=== PATIENT | male | born 1975 | race Caucasian/White ===

== ENCOUNTER 2016-09-13 19:25 | Inpatient (IN) | payer OTHER ==
--- NOTE | ~2016-09-13 | CN ---
Consultation Report [facility] [address] [place]. [address] NAME: RADHA ORTIZ : 73 STATUS : ADM IN PAT#: [id number] AGE: 40 ADM/REG DATE : 09/14/16 MR#: [id number] REPORT SERV DATE: 09/14/16 DICTATED BY: BLANE DON DATE: 09/14/16 REPORT STATUS : Draft TRANSCRIBED BY: ANDREW DATE: 09/14/16 CONSULTATION DATE OF CONSULTATION: 09/14/2016 HISTORY: This is a 40-year-old white male whom I am seeing for Dr. Edgard Perera, admitted with tarry stools and hematemesis in the ER. Hemoglobin 7.5, receiving transfusions. He has been at [facility]. He had a fall 9 years ago, paraplegia, has colostomy, frequent UTIs, developed decubitus and osteo. He has been receiving IV antibiotics at [facility] when the above developed. He has had the nausea and vomiting, 1 episode and several dark stools. He had a CT of the abdomen apparently unremarkable in the ER. SOCIAL HISTORY: Negative for nicotine. FAMILY HISTORY: Negative for colon cancer. He had an upper GI bleed in [place] about 4 months ago and had required 6 units. Apparently, no source identified. PHYSICAL EXAMINATION: GENERAL: Well-developed white male, alert. HEENT: Anicteric. NECK: Negative. CHEST: Clear to percussion. HEART: Regular rate rhythm. No murmur or gallop. ABDOMEN: Soft. No marked tenderness. Colostomy noted with dark stool in the bag. EXTREMITIES/NEUROLOGIC: Pertinent for his paraplegia. ASSESSMENT: 1. Upper gastrointestinal bleed. Hemoglobin 7.5. He is receiving blood. History of a 6- unit bleed in [place] four months ago. No identifiable source according to patient. White count 2800, platelet count 212,000, INR 1.3. 2. Paraplegia after a fall 9 years ago. 3. Decubitus with osteomyelitis on antibiotics at [facility]. 4. Frequent urinary tract infection, suggestion Protonix drip. Followup H and H. We will do EGD tonight. Risks and benefits explained to patient and he consented to the above. Thank you very much for the consultation. GARRETT Blane Don M.D. / [id number] Consultation Report [place] [address] [facility] [address] NAME: RADHA ORTIZ : 73 STATUS : ADM IN PAT#: [id number] AGE: 40 ADM/REG DATE : 09/14/16 MR#: [id number] REPORT SERV DATE: 09/14/16 DICTATED BY: BLANE DON DATE: 09/14/16 REPORT STATUS : Draft TRANSCRIBED BY: MODL DATE: 09/14/16 CC: MD Edgard Kruger M.D.
--- NOTE | ~2016-09-13 | DS ---
Discharge Summary [place] [address] [place]. [address] NAME: RADHA ORTIZ : 73 STATUS : DIS IN PAT#: [id number] AGE: 40 ADM/REG DATE : 09/14/16 MR#: [id number] REPORT SERV DATE: 09/28/16 DICTATED BY: DATE: REPORT STATUS : Draft TRANSCRIBED BY: MODL DATE: 09/27/16 ADMISSION DATE: 09/14/2016 DISCHARGE DATE: 09/27/2016 DISCHARGE DIAGNOSES: 1. Status post splenectomy. 2. Thrombocytosis. 3. Acute blood loss anemia. 4. Chronic pain syndrome. 5. Sacral osteomyelitis/chronic bilateral heel ulcers. 6. Paraplegia. 7. Opioid-induced constipation. 8. Anxiety. CONSULTATIONS: 1. Dr. Richie Villegas, GI, 09/14/2016. 2. Dr. Jakub Durham, Surgery, 09/19/2016. PERTINENT TESTS AND PROCEDURES: 1. CT of the abdomen and pelvis without contrast, 09/13/2016, impression:. a. No acute abdominal or pelvic pathology identified to account for the reported suspected GI bleeding. b. Status post partial left hemicolectomy with colostomy, left lower quadrant of the abdomen. c. 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 d. Status post cholecystectomy. e. Splenomegaly. f. Extensive postsurgical changes, lower thoracic and lumbar spine with posterior spinal fusion, T9 through L5. g. Severe degenerative changes, right hip joint with flattened femoral head contour with large marginal osteophytes rotated lateral margin or shallow right acetabulum with chronic appearing sclerosis about the acetabulum with probable bony debris within the joint capsule representing sequelae of old trauma, infection or severe osteoarthritis. 2. Chest x-ray, 09/15/2016, impression: Minimal bibasilar atelectasis. 3. Ultrasound of bilateral lower extremities, impression: No right or left lower extremity venous thrombus demonstrated. 4. Chest x-ray, 09/16/2016, impression: Stable appearance of chest. No acute infiltrate. 5. Hepatic ultrasound on 09/17/2016, impression: Portal vein exhibits turbulent flow. Suspect for biphasic component as portal vein is dilated measuring 1.0 cm in diameter consistent with portal venous hypertension. 6. CT of the pancreas with and without contrast, 09/18/2016, impression:. a. Multiple thick walled cyst replacing head, body, and tail of pancreas measuring up to 25 x 39 mm at the proximal tail level, likely to represent pancreatic pseudocyst. Discharge Summary [place] [address] [place]. [address] NAME: RADHA ORTIZ : 73 STATUS : DIS IN PAT#: [id number] AGE: 40 ADM/REG DATE : 09/14/16 MR#: [id number] REPORT SERV DATE: 09/28/16 DICTATED BY: DATE: REPORT STATUS : Draft TRANSCRIBED BY: MODL DATE: 09/27/16 b. 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 Multiple varices/collaterals within the splenic hilum and the surrounding stomach draining into the main portal vein. Inferior mesenteric vein is patent and appears to drain into this area of collaterals. c. Stable splenomegaly. Enlargement of main portal vein up to 20 mm in diameter compatible with portal hypertension. d. Stable mild fullness of the central biliary tree within the common bile duct measuring 8 mm in diameter. 7. Chest x-ray, 09/23/2016, impression: Clear chest. 8. 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 9. Laparotomy with splenectomy and gastric devascularization, 09/22/2016. CHIEF COMPLAINT UPON ADMISSION: Black tarry stools from ostomy. HOSPITAL COURSE: Please refer to history and physical dated 09/14/[address] Scotty Jordan for complete details pertaining to the patient's initial presentation upon admission and health history. Also, refer to consultations and records of operation between the dates of 09/14/2016 and 09/22/2016 provided by GI and Surgery. Refer to interim discharge dated 09/17/[address] Sierra Rivas, manager of radiology, for details pertaining to events occurring between 09/14/2016 and 09/17/2016. Briefly, the patient is a 40-year-old male, who presented to the emergency department from [facility] on 09/14/2016 with complaints of black tarry stools into his ostomy bag. Initial evaluation in the emergency department included Hemoccult which was positive. The patient's hemoglobin and hematocrit had fallen from 9.4 and 29.6 on 08/22/2016 to 7.4 and 26.6 on day of admission. Gastroenterology was consulted and the patient was admitted to the hospital service in the medical intermediate care unit for further evaluation and treatment of acute gastrointestinal bleeding. GI was consulted for management of upper GI bleed. Prior to this admission, the patient had a history of a 6 unit bleed in [place] four months ago with no identifiable source. 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 Surgery discussed with the patient. 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 The patient was educated that the treatment for this is splenectomy with gastric devascularization. The risk for major morbidity and mortality were explained to the patient as well as length of recovery time. Risks, Discharge Summary [address] [address] NAME: RADHA ORTIZ : 73 STATUS : DIS IN PAT#: [id number] AGE: 40 ADM/REG DATE : 09/14/16 MR#: [id number] REPORT SERV DATE: 09/28/16 DICTATED BY: DATE: REPORT STATUS : Draft TRANSCRIBED BY: MODL DATE: 09/27/16 benefits, and alternatives were discussed and the patient opted to proceed with surgery. 1. Status post splenectomy, 09/21/2016. This was secondary to GI bleed related to splenic vein thrombosis and gastric varices. Dr. Durham had followed patient throughout this admission. The patient tolerated the procedure without adverse events and has been cleared for discharge to [facility] today. [place] drain was removed at bedside prior to discharge today. MYRTLE drain will remain intact, and the patient will follow up with Surgery in two weeks. The patient received splenectomy vaccinations per protocol prior to discharge. Prescription was provided at discharge for remaining vaccinations to be administered the week of 11/26/2016. 2. Thrombocytosis. This is likely reactive secondary to recent splenectomy. On the day of discharge, platelet count was reported to be 700,000. The patient's labs will need to be monitored closely once discharged to [place]. 3. Acute blood loss anemia. 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 Sequelae may be related to a previous alcohol abuse. The patient's hemoglobin and hematocrit are now stable, status post transfusions and splenectomy. Hemoglobin and hematocrit are reported to be 8.6 and 28.2 today. 4. Chronic pain syndrome. This is secondary to chronic sacral and bilateral heel ulcers in addition to recent abdominal pain related to splenectomy. The patient's pain has been controlled on Dilaudid PHOT[employer] ENGINEERING TECHNICIAN pump in addition to p.o. pain medications. The patient will transfer to [place] with PHOTON[employer] ENGINEERING TECHNICIAN pump orders. [place] will wean the patient off PHOTON[employer]INEERING TECHNICIAN pump. 5. Sacral osteomyelitis/chronic bilateral heel wounds. The patient has a history of sacral decubitus ulcers positive for osteomyelitis and MRSA bacteremia. ID was consulted during this admission and managed antibiotic therapy. Per ID, the patient will remain on vancomycin and meropenem through 10/15/2016. ID will continue to follow the patient at [facility]. The patient's wounds have been managed by wound nurse throughout admission. 6. Recurrent UTIs, ESBL. This is related to chronic Pan. Urinalysis was obtained on 09/14/2016 and result was negative for infection. 7. Paraplegia. This is due to a work related accident approximately nine years ago. 8. Opioid-induced constipation. Continue bowel regimen. The patient has a left lower quadrant ostomy. Output has been approximately 50 mL of liquid stool over the past 24 hours. 9. Anxiety. Continue scheduled alprazolam. DISCHARGE CONDITION: At the time of discharge, the patient is hemodynamically stable. DISCHARGE DIET: Mechanical soft diet. DISCHARGE MEDICATIONS: 1. Xanax 1 mg tablet p.o. every eight hours. 2. Vianca Cream, applied to scrotum twice daily and as needed. 3. Protonix 40 mg IV daily. 4. MRSA/MSSA re-screening nasal swab every 14 days starting 09/28/2016. 5. Mylicon three drops p.o. twice daily as needed. Discharge Summary [address] [place]. [address] NAME: RADHA ORTIZ : 73 STATUS : DIS IN PAT#: [id number] AGE: 40 ADM/REG DATE : 09/14/16 MR#: [id number] REPORT SERV DATE: 09/28/16 DICTATED BY: DATE: REPORT STATUS : Draft TRANSCRIBED BY: ANDREW DATE: 09/27/16 6. Oxymorphone 5 mg tablet, take 15 mg p.o. every eight hours scheduled. 7. Vancomycin 1 g IV every 12 hours. Continue through 10/15/2016. 8. Tylenol 650 mg p.o. every four hours as needed. 9. Benadryl 25 mg IV every six hours as needed. 10.Benadryl 25 mg p.o. every four hours as needed. 11.Dilaudid 1.5 mg IV every three hours as needed. Hold for sedation. 12.Zofran 48 mg IV every four hours as needed. 13.Zanaflex 4 mg p.o. every eight hours as needed. 14.Ambien 5 mg tablet p.o. at bedtime as needed. 15.Senokot 8.6 mg tablet two tablets p.o. twice daily as needed. 16.Milk of magnesia 30 mL p.o. daily as needed. 17.Merrem 500 mg IV every six hours. Continue through 10/15/2016. 18.MiraLAX 17 g p.o. daily. 19.Dilaudid PH[employer]INEERING TECHNICIAN pump. Demand dose 0.5 mg. lockout every 15 minutes. Total dose 2 mg/hour. To be weaned off per [place]. DISCHARGE INSTRUCTIONS: Follow up with Dr. Durham' nurse practitioner in two weeks. Additional plans of care will be determined per physician at [place]. [facility]/ANDREW ISABELLA Bello / [id number] CC: Radha Romero II, MD
--- NOTE | ~2016-09-13 | IDS ---
Interim Discharge Summary [facility] [address] [place]. [address] NAME: RADHA ORTIZ : 73 STATUS : ADM IN [facility]#: [id number] AGE: 40 ADM/REG DATE : 09/14/16 MR#: [id number] REPORT SERV DATE: 09/17/16 DICTATED BY: REGGIE RANDHAWA DATE: 09/17/16 REPORT STATUS : Draft TRANSCRIBED BY: MODL DATE: 09/17/16 ADMISSION DATE: 09/14/2016 DISCHARGE DATE: HISTORY OF PRESENT ILLNESS: Mr. Ortiz is a 40-year-old gentleman, who is followed by Dr. Perera, who has been a paraplegic for the last nine years after a fall. He has a colostomy, frequent urinary tract infections, decubitus ulcers, and recent osteomyelitis. He was actually admitted to [place] for the administration of IV antibiotics for his sacral decubitus/osteo, and developed nausea, vomiting, with some dark stools, and was moved to our facility for further management. Of note, he had a profound upper GI bleed in [place] around four months ago requiring six unit of packed red blood cell for resuscitation and evidently no source was found for the bleeding at that point. HOSPITAL COURSE: The patient was admitted on the 09/14/2016, by Dr. Jordan to the Intermediate Care Unit. GI and Infectious Disease were both consulted. ID was consulted for management of his chronic sacral decubitus infections. He was moved to the intensive care unit a short time later, and was seen by Dr. Fairbanks. Please see Dr. Fairbanks's handwritten progress notes from the last several days for additional details of his hospital course. PROBLEM LIST: 1. Acute upper GI bleed, status post endoscopy by Dr. Villegas at the time of his hospitalization. Plan is for a repeat EGD today to take a second look. We are continuing to monitor his H and H. 2. Acute blood-loss anemia, secondary to the above. His H and H, and hemodynamics have been stable for several days. 3. Chronic paraplegia x9 years, status post diverting colostomy, multiple sacral decubitus, with polymicrobial colonization, and intermittent MRSA infections, presently with osteomyelitis. He also has a prior history of ESBL Proteus in his urine. 4. Chronic pain syndrome requiring chronic narcotics. 5. Chronic constipation, secondary to opiates, paraplegia. 6. Chronic anxiety. 7. Prophylaxis, SCDs, and TEDS, and is on a proton pump inhibitor. He is full code, and the plan is to move him to the floor today for ongoing management. He will be picked up by Hospitalist Service and we have already notified the hospitalist navigator, and his labs were deferred for tomorrow morning. Please call with additional questions. JEREMIE/ANDREW Reggie Randhawa MD / [id number] CC: Interim Discharge Summary [address] [address] NAME: RADHA ORTIZ : 73 STATUS : ADM IN PAT#: [id number] AGE: 40 ADM/REG DATE : 09/14/16 MR#: [id number] REPORT SERV DATE: 09/17/16 DICTATED BY: REGGIE RANDHAWA DATE: 09/17/16 REPORT STATUS : Draft TRANSCRIBED BY: ANDREW DATE: 09/17/16 Richie Biswas MD
--- NOTE | ~2016-09-13 | OP ---
Record Of Operation [facility] [address] [place] [address] NAME: RADHA ORTIZ : 73 STATUS : ADM IN PAT#: [id number] AGE: 40 ADM/REG DATE : 09/14/16 MR#: [id number] REPORT SERV DATE: 09/14/16 DICTATED BY: BLANE DON DATE: 09/14/16 REPORT STATUS : Draft TRANSCRIBED BY: MODL DATE: 09/14/16 DATE OF PROCEDURE: 09/14/2016 PROCEDURE: Panendoscopy. PREOPERATIVE DIAGNOSES: 1. Tarry stools. 2. Episode of hematemesis. POSTOPERATIVE DIAGNOSES: There is a large amount of blood in the fundus and some old blood as well. There appeared to be some prominent vasculature in the fundus, questionable possible rule out gastric varices. Esophagus was normal, no varices noted there. The duodenum had fresh blood as well but no lesion identified there as well. DESCRIPTION OF PROCEDURE: The risk was explained prior to the procedure. The patient was intubated prior to procedure. An Olympus video endoscope was advanced into the esophagus which was normal. No blood noted in the esophagus. No varices. The scope was passed in the stomach with a large amount of blood and clot noted in the fundus, best seen on retroflexed view. The vasculature appeared somewhat prominent, questionable right gastric varices, again to the underlying vessel underneath a large amount of blood. The remainder of the stomach appeared unremarkable. The scope was passed into the duodenum, duodenal bulb, and second and third portions, and some blood which washed off but no obvious bleeding or site noted here. The scope was then pulled back into the stomach and pulled back into the esophagus and removed. The scope was withdrawn. The patient tolerated the procedure well with no complications noted. KAELYN/ANDREW Blane Don M.D. / [id number] CC: MD Edgard Kruger M.D.
--- NOTE | ~2016-09-13 | HP ---
History And Physical [facility] [address] [facility] [place]. [address] NAME: RADHA ORTIZ : 73 STATUS : ADM IN [facility]#: [id number] AGE: 40 ADM/REG DATE : 09/14/16 MR#: [id number] REPORT SERV DATE: 09/14/16 DICTATED BY: SCOTTY GOODWIN DATE: 09/14/16 REPORT STATUS : Draft TRANSCRIBED BY: MODL DATE: 09/14/16 DATE OF ADMISSION: 09/14/2016 CHIEF COMPLAINT: Black tarry stools from his ostomy. HISTORY OF PRESENT ILLNESS: This is a 40-year-old male with a history of paraplegia secondary to a fall 40 to 50 feet height while he was at work. He has a history of ESBL urinary tract infections and ischial decubitus ulcers positive for osteomyelitis and MRSA bacteremia. The patient was sent to [place] for IV antibiotics and acute care when this morning, he noticed that he had black tarry stools into his ostomy bag. He filled two bags in similar fashion and the facility decided to bring him over to the emergency room at [facility] for evaluation. In the emergency room, indeed he was stool Hemoccult positive. His hemoglobin and hematocrit had fallen from 9.4 and 29.6 on 08/22/2016 to 7.4, 26.6 today. The ER called Dr. Richie Villegas for a Gastroenterology consultation and he had advised admission under the Hospitalist Service in the medical intermediate care unit. He had also ordered 2 units of blood to be transfused today. At the time of my evaluation, the patient was alert, awake, oriented, and a reliable historian. He denied any chest pain, palpitations, or orthopnea. He had no cough, hemoptysis, night sweats, or weight loss. He did not have any recent falls or loss of consciousness. No history of fevers, chills, nausea, vomiting, diarrhea, or dysuria. He has had no hematemesis. He did have melena. No history of hematuria. No other history of recent travel or exposures other than those mentioned above. PAST MEDICAL HISTORY: Significant for chronic pain due to his ischial decubitus ulcers and bilateral heel ulcers. He is paraplegic after he had a fall 40 to 50 feet of height where he was working. He has a history of MRSA bacteremia, MRSA positive osteomyelitis in the ischial ulcers, and bilateral severe heel ulcers as well. He has ESBL Proteus urinary tract infection due to chronic Pna catheter as well. SOCIAL HISTORY: He does not smoke, drink, or use recreational drugs. However one of the records, which accompanied him from another facility, does show that he tested positive for amphetamines and THC. FAMILY HISTORY: Noncontributory. MEDICATIONS: His medications at home were reviewed by me in the chart today and reordered by me. REVIEW OF SYSTEMS: As in history of present illness. All other systems were reviewed in detail and are quite unremarkable. PHYSICAL EXAMINATION: History And Physical [address] [place]. [address] NAME: RADHA ORTIZ : 73 STATUS : ADM IN [facility]#: [id number] AGE: 40 ADM/REG DATE : 09/14/16 MR#: [id number] REPORT SERV DATE: 09/14/16 DICTATED BY: SCOTTY GOODWIN DATE: 09/14/16 REPORT STATUS : Draft TRANSCRIBED BY: ANDREW DATE: 09/14/16 GENERAL: This is a pleasant 40-year-old not in any acute distress. HEENT: Head is atraumatic, normocephalic. He is alert, awake, and oriented to time, place, and person. His pupils are equal, reacting to light and accommodating. External ocular muscles are intact. Membranes are moist and pink. Sclerae are nonicteric. NECK: Supple with no jugular venous distention, lymphadenopathy, or thyromegaly. LUNGS: Clear to auscultation with no wheezes, rubs, or crackles. HEART: Heart sounds were regular with no murmurs, rubs, or gallops. ABDOMEN: Soft, nontender. Bowel sounds present. EXTREMITIES: Showed no cyanosis, clubbing, or edema. NEURO: Positive for paraplegia. VITAL SIGNS: Today showed a temperature of 98.1, pulse 83, respirations 16 a minute, his blood pressure was 88/61 upon arrival. At the time of my evaluation, it was 131/84 with a heart rate of 104 after he had received some blood as well as fluids. His oxygen saturations were 95% breathing room air. LABORATORY DATA: Reviewed on the [place] system showed a sodium of 138, potassium 4.4, chloride 100, and CO2 of 33. BUN was 18 with a creatinine of 0.58 and glucose was 96. His alkaline phosphatase was 132, ALT 12, and AST 8. His CBC showed a white blood cell count of 2800, hemoglobin was 7.5, hematocrit 26.6, and platelet count was 212,000. His prothrombin time was 15.6 with an INR of 1.3. Urinalysis was grossly unremarkable today. Films of the CT scan of his abdomen and pelvis were reviewed by me on the PACS today. Official Radiology report was also reviewed. There is no acute pathology seen in today's films for bleeding. Please see the report for details. IMPRESSION: 1. Acute gastrointestinal bleeding. 2. Anemia secondary to blood loss. 3. Bilateral ischial decubitus ulcers positive for methicillin-resistant Staphylococcus aureus osteomyelitis. 4. Methicillin-resistant Staphylococcus aureus bacteremia. 5. History of extended-spectrum beta-lactamase Proteus urinary tract infection due to chronic indwelling Pan catheter. 6. Paraplegia secondary to fall in 2009. 7. Chronic pain with possible opioid dependence. PLAN: We will admit Mr. Ortiz to the Hospitalist Service in the medical intermediate care unit for close monitoring per Dr. Villegas. He has received 2 units of packed red blood cells. We will type, cross, follow hemoglobin and hematocrit levels, and continue transfusion if needed. We will go ahead and consult Dr. Villegas to see him in the morning. Meanwhile, we will keep him n.p.o. and start him on proton pump inhibitor infusion. We will go ahead and place him on SCDs for DVT prophylaxis while he is here and also check his UDS. He will be continued on the antibiotics that he has been on from [place] and we will go ahead and consult Infectious Disease Specialty to see him for his osteomyelitis and bacteremia. Please see today's orders. The above plan was discussed with the patient, his questions were answered, and he is agreeable to the above recommendations. Hospitalist Service will be following him during his stay here. History And Physical [address] [address] NAME: RADHA ORTIZ : 73 STATUS : ADM IN [facility]#: [id number] AGE: 40 ADM/REG DATE : 09/14/16 MR#: [id number] REPORT SERV DATE: 09/14/16 DICTATED BY: SCOTTY GOODWIN DATE: 09/14/16 REPORT STATUS : Draft TRANSCRIBED BY: MODL DATE: 09/14/16 MR/MODL Scotty Goodwin M.D. / [id number] CC: Alejandro Livingston MD
--- NOTE | ~2016-09-13 | OP ---
Record Of Operation [facility] [address] [place]. [address] NAME: RADHA ORTIZ : 73 STATUS : ADM IN PAT#: [id number] AGE: 40 ADM/REG DATE : 09/14/16 MR#: [id number] REPORT SERV DATE: 09/17/16 DICTATED BY: EDGARD PERERA DATE: 09/17/16 REPORT STATUS : Draft TRANSCRIBED BY: MODL DATE: 09/17/16 DATE OF PROCEDURE: PROCEDURE: EGD. INDICATION: Upper gastrointestinal bleed. MEDICATIONS: Propofol. HYDRODYNAMICS TEACHER: Edgard Perera M.D. COMPLICATIONS: None. HISTORY: This unfortunate 40-year-old gentleman has colostomy and chronic paraplegia. He also describes a chronic pain syndrome. He was admitted to an outside hospital a month or two ago with massive upper GI bleed of 6 units. Definitive source was never identified. He was then admitted here several days ago, and he had an EGD in my absence by Dr. Villegas. There was some question of abnormal vessels in the fundus but too much blood to fully evaluate these. He has been treated with Sandostatin and has done well since although he has received a total of 5 units of packed red blood cells. We decided to take a second look today to try to better define the bleeding lesion. The potential risks were reviewed with the patient including bleeding, medication reaction, or perforation. He elected to proceed. FINDINGS: Endoscopic examination of the esophagus, stomach, duodenum was performed including a retroflexed view of the GE junction. There was no active bleeding nor any old blood anywhere in the upper GI tract. There were no esophageal varices. There did appear to be several large gastric varices at the GE junction and along the fundus, some of which had some red hernando signs. Endoscopic photographs were taken. 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 Note that the noncontrast CT scan on admission here showed multiple pancreatic pseudocysts, and the patient states he has a history of pancreatitis about three years ago for which he had a cholecystectomy. He denies any alcohol use in decades. RECOMMENDATIONS: 1. Resume p.o. 2. We will continue Sandostatin 50 mcg an hour. 3. Change Protonix to 40 mg daily orally. 4. Relistor 12 mg today and every other day as needed for opioid-induced constipation. 5. We will go ahead with CT with contrast and pancreatic protocol to better assess the pancreas and look for evidence of splenic vein thrombosis. 6. Doppler of hepatic and portal vessels. Record Of Operation [facility] [address] [place]. [address] NAME: RADHA ORTIZ : 73 STATUS : ADM IN PAT#: [id number] AGE: 40 ADM/REG DATE : 09/14/16 MR#: [id number] REPORT SERV DATE: 09/17/16 DICTATED BY: EDGARD PERERA DATE: 09/17/16 REPORT STATUS : Draft TRANSCRIBED BY: ANDREW DATE: 09/17/16 /ANDREW Edgard Perera M.D. / [id number] CC: Richie Biswas MD
--- NOTE | ~2016-09-13 | OP ---
Record Of Operation [facility] [address] [place]. 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 PROCEDURE: Laparotomy with splenectomy and gastric devascularization. SURGEON: Amelia Figueroa M.D. ANESTHESIA: General with intubation. COMPLICATIONS: None. ESTIMATED BLOOD LOSS: 1200 mL. SPECIMENS: Spleen. DRAINS: Donnie-Qureshi in abdominal cavity and Cody in subcutaneous tissue. LAP AND SPONGE COUNT: Correct x3. BRIEF HISTORY: This 40-year-old male has a history of recurrent massive upper GI bleeding secondary to gastric varices. On this admission, he had a second episode of massive bleeding requiring about four to five units of blood in transfusion. The patient's workup showed evidence for splenic vein thrombosis related to chronic severe pancreatitis most likely related to previous alcohol or drug use. There was no nonoperative management available which would be effective for his situation. I reviewed his case with both Radiology and GI Medicine and both concurred that no options were available other than splenectomy and gastric devascularization. It was felt that this would be a major operation with high risk for the procedure but without this he would have a major risk for recurrent episodes of life-threatening bleeding. Regarding the procedure, i.e., splenectomy with gastric devascularization, the risks, benefits, alternatives, including but not limited to the risk for bleeding, infection, enterotomy, injury to any abdominal structure, postop small bowel obstruction, ileus, incisional hernia, dehiscence, pancreatitis, pancreatic fistula formation, overwhelming postsplenectomy sepsis, left upper quadrant subphrenic abscess, recurrent GI bleeding in spite of the surgery and unforeseen complications including deep venous thrombosis, pulmonary embolus, myocardial infarction, stroke, pneumonia, and , were fully and completely explained to the patient prior to the surgery. The fact again that this was a major operation with high risk for morbidity and mortality was explained, particularly considering his debilitated state and the fact that he Record Of Operation [facility] [address] [place]. [address] NAME: RADHA ORTIZ : 73 STATUS : ADM IN [facility]#: [id number] AGE: 40 ADM/REG DATE : 09/14/16 MR#: [id number] REPORT SERV DATE: 09/22/16 DICTATED BY: AMELIA FIGUEROA III DATE: 09/22/16 REPORT STATUS : Draft TRANSCRIBED BY: ANDREW DATE: 09/22/16 had paraplegia with chronic decubitus ulcers. The patient understood the risks and agreed to the surgery as planned. PROCEDURE IN DETAIL: After being properly identified and after discussing risks of surgery with the patient again in the preoperative area, he was taken to the operating room and placed in the supine position on the operating room table. General anesthesia was administered. He was intubated without difficulty. A Pan catheter was inserted. The abdomen was prepped and draped sterilely in the usual fashion. After an appropriate "time- out" per JCAHO standards, a left subcostal incision was made about 2 cm below the costal margin. The incision was continued through the subcutaneous tissue. Hemostasis was controlled with cautery. The incision was continued through all layers of fascia. The abdominal cavity was entered. The patient had evidence for severe pancreatitis. The stomach was densely adherent to the pancreas which was extremely hard and fibrotic. The splenic vessels were not easily identifiable secondary to the inflammatory changes with the hilum of the spleen being densely adherent to the tail of the pancreas. The stomach was elevated. The gastrocolic ligament was divided beginning distally and continuing proximally. This was done along the greater curve of the stomach so as to perform a devascularization of the greater curve of the stomach. This was done using the Harmonic scalpel. The short gastric vessels were all massively dilated. There were extensive varices around the stomach and in the retroperitoneum. Gentle manipulation of these varices resulted in massive bleeding and the dissection was done very carefully and meticulously. In this way, the greater curve of the stomach was freed and devascularized from several centimeters proximal to the pylorus to the GE junction. The spleen itself was massively enlarged. It had massive varices around it in the retroperitoneum and the splenic hilum. The spleen was densely adherent to the retroperitoneum. The liver itself grossly appeared to be normal with no evidence for cirrhosis. Using sharp dissection, the peritoneal flexion along the posterior aspect of the spleen was divided. The splenorenal ligaments were divided. We dissected into the splenic hilum to attempt to identify the splenic vein and artery. These initially could not be individually identified. Using careful dissection, we dissected into the splenic vein, taking care not to encroach upon or injure the tail of the pancreas. The normal tissue planes were obliterated and not present due to the patient's severe pancreatitis and again, the entire pancreatic gland was hard and fibrotic. Individual varices in the splenic hilum were divided. We were able to identify the splenic vein and the splenic artery. These were individually isolated, ligated, and divided with 0 silk sutures. The spleen was thus completely immobilized and removed in this fashion. Numerous varices were identified. These were ligated. There was extensive bleeding due to the patient's portal hypertension and varices and this was controlled both with suture ligature and the harmonic scalpel. The Cell Saver was used to recapture the blood. This was transfused back to the patient. Record Of Operation [facility] [id number] [facility] [place]. [address] NAME: RADHA ORTIZ : 73 STATUS : ADM IN [facility]#: [id number] AGE: 40 ADM/REG DATE : 09/14/16 MR#: [id number] REPORT SERV DATE: 09/22/16 DICTATED BY: AMELIA FIGUEROA III DATE: 09/22/16 REPORT STATUS : Draft TRANSCRIBED BY: MODL DATE: 09/22/16 The area was irrigated copiously with saline. Hemostasis was assured. A Donnie-Qureshi drain was brought through separate stab wound and placed in the left upper quadrant. Evicel fibrin was placed in the area to help with hemostasis. After hemostasis was assured, the fascia was closed in two layers with a running looped #1 PDS suture. The subcutaneous tissue was closed with a running 3-0 chromic suture over a Flynn drain which was brought out through the inferior aspect of the incision. The skin was closed with running subcuticular 4-0 Monocryl stitch. Dressings were applied. Anesthesia was reversed. The patient was taken to recovery room in stable condition. He tolerated the procedure well. His family was informed results of surgery. The patient will remain in the hospital for postoperative care. RHJ/OLGAL elia Figueroa III, M.D. / [id number] CC: Charles Fang MD
--- NOTE | ~2016-09-13 | CN ---
Consultation Report [facility] [address] [place]. [address] NAME: RADHA ORTIZ : 73 STATUS : ADM IN PAT#: [id number] AGE: 40 ADM/REG DATE : 09/14/16 MR#: [id number] REPORT SERV DATE: 09/19/16 DICTATED BY: AMELIA FIGUEROA III DATE: 09/19/16 REPORT STATUS : Draft TRANSCRIBED BY: MODL DATE: 09/19/16 DATE OF CONSULTATION: 09/19/2016 REASON FOR CONSULT: 1. Recurrent upper gastrointestinal bleeding. 2. Gastric varices. 3. Splenic vein thrombosis. 4. Recommendation regarding surgical management. HISTORY OF PRESENT ILLNESS: We are asked to see this 40-year-old male, hospitalized for the above reasons. The patient had an episode of massive upper GI bleeding, requiring 16 units of blood in transfusion at an outside hospital one or two months ago. The definite source of bleeding was not identified. The bleeding stopped spontaneously. The patient was admitted to this hospital emergently on 09/14/2016 again with episodes of massive GI bleeding. He required another 5 units of blood in transfusion. Workup on this admission showed evidence for a large gastric varices. Further workup shows evidence for splenic vein thrombosis. The patient has a history of chronic and recurrent pancreatitis apparently of unclear etiology. He does have a history of illicit drug abuse in the past. The patient has a history of paraplegia secondary to a previous traumatic injury. He has a history of chronic disability and recurrent urinary tract infections and acute ischemic ulcers. He has a history of a previous colostomy performed for control of perineal decubitus ulcers. The patient has not had any bleeding for the last 48 hours. He required 4 units of blood in transfusion on this admission. The patient denies any abdominal pain. PAST MEDICAL HISTORY: 1. History of paraplegia related to a fall about nine years ago. 2. History of recurrent urinary tract infections. 3. History of current decubitus ulcer of the back and perineum and osteomyelitis. 4. History of massive upper GI bleeding, as described one or two months ago. 5. History of chronic pain related to ischemic decubitus ulcers requiring chronic narcotics. 6. History of MRSA positive osteomyelitis. 7. History of MRSA bacteremia. 8. History of bilateral severe heel ulcers. SOCIAL HISTORY: The patient denies any history of alcohol or drug abuse currently. However, he has had a previous test positive for amphetamines and THC. Consultation Report [facility] [address] [place]. [address] NAME: RADHA ORTIZ : 73 STATUS : ADM IN PAT#: [id number] AGE: 40 ADM/REG DATE : 09/14/16 MR#: [id number] REPORT SERV DATE: 09/19/16 DICTATED BY: AMELIA FIGUEROA III DATE: 09/19/16 REPORT STATUS : Draft TRANSCRIBED BY: MODRichie DATE: 09/19/16 FAMILY HISTORY: Unremarkable. MEDICATIONS: As per medication list which I have reviewed. OBJECTIVE PHYSICAL EXAM: GENERAL: This is a thin male in no acute distress. He is alert and oriented x3. VITAL SIGNS: Blood pressure 103/63, temperature 98.4, pulse 80. HEENT: Unremarkable. Cranial nerves II through XII are normal. LUNGS: Clear. CARDIAC: Normal. ABDOMEN: Soft, nontender. The patient has a colostomy in the left lower quadrant. He has a well-healed midline incision. Decubitus ulcers are as previously described. STUDIES: CT scan of the pancreas on this admission which I reviewed shows evidence for chronic pancreatitis and chronic small cysts throughout the pancreas as well as evidence for splenic vein thrombosis. There are multiple thick walled cysts replacing the head, body, and tail of the pancreas measuring up to 3.9 cm in size at the proximal tail level thought to represent chronic pancreatic pseudocyst. There is only a small bowel normal pancreatic parenchyma remaining. There is noted be thrombosis of the splenic vein central to the splenic hilum as well as thrombosis of the superior mesenteric vein. There were noted to be multiple varices and collaterals in the splenic hilum and surrounding the stomach draining into the portal vein. There is splenomegaly noted. Electrolytes are unremarkable. Albumin low at 2.7. Liver enzymes are unremarkable. Hematocrit 33. White blood cell count 2.6. Platelet count 146,000. Panendoscopy, per Dr. Perera, shows massive gastric varices. ASSESSMENT: 1. A 40-year-old male with recurrent episodes of massive upper gastrointestinal bleeding related to gastric varices, related to splenic vein thrombosis. 2. Splenic vein thrombosis, it is likely secondary to chronic recurrent pancreatitis, also with superior mesenteric vein thrombosis. This may be related to a previous alcohol abuse. 3. Portal hypertension, probable underlying chronic liver disease. 4. Paraplegia with history of multiple decubitus ulcers in the past. 5. History of previous colostomy for control of the perineal ulcers. PLAN: I discussed this with the patient. I explained that he has evidence for gastric vein thrombosis with massive bleeding with two major life-threatening episodes of bleeding secondary to gastric varices secondary to splenic vein thrombosis. I explained the treatment for this is splenectomy with gastric devascularization. I have recommended this and we will schedule to be done for Saturday for him. The fact that this is a major operation with risk for major morbidity and mortality has been explained as well as expected length of Consultation Report [facility] [id number] [place]. [address] NAME: RADHA ORTIZ : 73 STATUS : ADM IN [facility]#: [id number] AGE: 40 ADM/REG DATE : 09/14/16 MR#: [id number] REPORT SERV DATE: 09/19/16 DICTATED BY: AMELIA FIGUEROA III DATE: 09/19/16 REPORT STATUS : Draft TRANSCRIBED BY: ANDREW DATE: 09/19/16 recovery. The procedure, risks, benefits, and alternatives, including but not limited to the risk for bleeding, infection, enterotomy, injury to any abdominal structure, postop small bowel obstruction, ileus, incisional hernia, dehiscence, pancreatitis, pancreatic fistula formation, overwhelming post splenectomy sepsis, which could result in , left upper quadrant subphrenic abscess which could result in , gastroparesis, injury to the stomach or pancreas and unforeseen complications including deep venous thrombosis, pulmonary embolus, myocardial infarction, stroke, pneumonia, and have been fully and completely explained to the patient at length prior to surgery. The fact that this is a major operation with risk for major morbidity and mortality have been explained, the expected length of recovery has been explained. The option of no surgery has been offered to the patient, but declined. I have explained to the patient that this is a major operation in an attempt to save his life, and without surgery, he will likely have recurrent episodes of massive gastrointestinal bleeding which could be fatal at the next episode. The patient understands the high risk for the surgery and wished to proceed with surgery as planned. His questions have been answered. BRITT/ANDREW elia Figueroa III, M.D. / [id number] CC: Charles Fang MD
--- NOTE | ~2016-09-13 | OP ---
Record Of Operation [facility] [address] [address] NAME: RADHA ORTIZ : 73 STATUS : ADM IN PAT#: [id number] AGE: 40 ADM/REG DATE : 09/14/16 MR#: [id number] REPORT SERV DATE: 09/22/16 DICTATED BY: AMELIA FIGUEROA III DATE: 09/22/16 REPORT STATUS : Draft TRANSCRIBED BY: MODRichie DATE: 09/22/16 DATE OF PROCEDURE: 09/21/2016 ADDENDUM: This procedure was extremely difficult due to the above reasons including the patient's severe portal hypertension and varices and pancreatitis. This extended the length of the procedure by 100%. For this reason, Modifier 22 was added to the procedural code. RHBrian/ANDREW elia Figueroa III, M.D. / [id number] CC: Charles Fang MD
[2016-09-13 20:11] LABS: A/G RATIO 0.7 (0.7-1.9); ALKALINE PHOSPHATASE 132 U/L (45-117); BUN (BLOOD UREA NITROGEN) 18 MG/DL (6-23); CALCIUM, SERUM 8.6 MG/DL (8.5-10.4); CHLORIDE, SERUM 100 MMOL/L (96-112); CO2 (CARBON DIOXIDE) 33 MMOL/L (24-34); CREATININE 0.58 MG/DL (0.70-1.30); GFR AFRICAN AMERICAN 147 ML/MIN (>=60); GFR NON AFRICAN AMERICAN 127 ML/MIN (>=60); GLOBULIN 4.2 G/DL (2.5-4.1); GLUCOSE, SERUM 96 MG/DL (60-99); POTASSIUM, SERUM 4.4 MMOL/L (3.5-5.3); SGOT(AST) 8 U/L (5-40); SGPT(ALT) 12 U/L (5-65); SODIUM, SERUM 138 MMOL/L (135-148); TOTAL BILIRUBIN 0.4 MG/DL (0-1.2); TOTAL PROTEIN 7.2 G/DL (6.0-8.5)
[2016-09-13 20:48] LABS: ASCORBIC ACID (UR NOT ORDER) 40 (NEG); BILIRUBIN, URINE NEGATIVE (NEG); ER URINALYSIS TAT 0 Hrs 23 Mins; KETONE, URINE NEGATIVE (NEG); LEUKOCYTE ESTERASE(NOT OR NEG (NEG); NITRITE (URINE) NEG (NEG); WBC (NOT ORDERED) (RFLEX) 1 (0-5)
[2016-09-13 20:50] LABS: BASOPHILS 1.1 %; BASOPHILS ABSOLUTE 0.03 10/3/uL (0.0-0.16); EOSINOPHILS 4.2 %; EOSINOPHILS ABSOLUTE 0.12 10/3/uL (0.0-0.53); ER CBC TAT 0 Hrs 05 Mins; HEMATOCRIT 26.6 % (40.0-51.0); HEMOGLOBIN 7.5 g/dL (13.6-17.8); LYMPHOCYTES 30.6 %; LYMPHOCYTES ABSOLUTE 0.87 10/3/uL (0.67-4.30); MEAN CORPUS HGB CONC 28.2 g/dL (32.0-36.0); MEAN CORPUSCULAR HEMOGLOB 19.7 pg (26.0-34.0); MEAN PLATELET VOLUME 8.4 fL (9.2-13.0); MONOCYTES 9.9 %; MONOCYTES ABSOLUTE 0.28 10/3/uL (0.21-1.20); NEUTROPHILS 54.2 %; NEUTROPHILS ABSOLUTE 1.54 10/3/uL (2.02-8.40); PLATELET COUNT 212 10/3/uL (150-400); RBC DISTRIBUTION WIDTH 19.6 % (12.0-16.0); WHITE BLOOD CELLS 2.8 10/3/uL (4.5-10.5)
[2016-09-13 20:54] LABS: MANUAL DIFF NO %
[2016-09-13 23:14] LABS: INTERNATIONAL NORMAL RATI 1.3 UNITS (-); PARTIAL THROMBO TIME 25.3 SEC (22.5-37.2); PROTIME (NOT ORD) 15.6 SEC (12.0-14.5)
[2016-09-14] MEDS ORDERED: VANCO500 IV (00:41)
[2016-09-14] MEDS ORDERED: CONSTULOSE PO (00:42)
[2016-09-14] MEDS ORDERED: SENTAB PO (00:42)
[2016-09-14] MEDS ORDERED: MOMUD PO (00:43)
[2016-09-14] MEDS ORDERED: MERREM500 MG IV (00:45)
[2016-09-14] MEDS ORDERED: VANCO1P IV (00:48)
[2016-09-14] MEDS ORDERED: MIRALAX POWDER1 PKT PO (00:49)
[2016-09-14] MEDS ORDERED: OPANA5 MG PO (00:53)
[2016-09-14] MEDS ORDERED: DIL1INJ IV (00:59)
[2016-09-14] MEDS ORDERED: PEP20 PO (01:00)
[2016-09-14] MEDS ORDERED: XANAX1 MG PO (01:00)
[2016-09-14] MEDS ORDERED: ZANAFLEX 4 MG TA4 MG PO (01:01)
[2016-09-14] MEDS ORDERED: SEROQUEL25 PO (01:01)
[2016-09-14] MEDS ORDERED: AMB5 PO (01:01)
[2016-09-14] MEDS ORDERED: BEN50P IV (01:04)
[2016-09-14] MEDS ORDERED: 8 HOUR650 MG PO (01:05)
[2016-09-14 03:22] LABS: BASOPHILS 0.6 %; BASOPHILS ABSOLUTE 0.02 10/3/uL (0.0-0.16); EOSINOPHILS ABSOLUTE 0.11 10/3/uL (0.0-0.53); ER CBC TAT 0 Hrs 05 Mins; IMMATURE GRANULOCYTES 0.3 %; IMMATURE GRANULOCYTES ABSOLUTE 0.01 10/3/uL (0.0-0.11); LYMPHOCYTES 19.4 %; MEAN CORPUS HGB CONC 28.8 g/dL (32.0-36.0); MEAN CORPUSCULAR HEMOGLOB 20.8 pg (26.0-34.0); MEAN CORPUSCULAR VOLUME 72.1 fL (80-100); MEAN PLATELET VOLUME 8.5 fL (9.2-13.0); MONOCYTES 5.8 %; MONOCYTES ABSOLUTE 0.21 10/3/uL (0.21-1.20); NEUTROPHILS 70.9 %; NEUTROPHILS ABSOLUTE 2.56 10/3/uL (2.02-8.40); PLATELET COUNT 233 10/3/uL (150-400); RBC DISTRIBUTION WIDTH 20.7 % (12.0-16.0); RED CELL COUNT 4.33 10/6/uL (4.7-6.1); WHITE BLOOD CELLS 3.6 10/3/uL (4.5-10.5)
[2016-09-14 04:18] LABS: HEMATOCRIT 31.2 % (40.0-51.0)
[2016-09-14 04:20] LABS: MANUAL DIFF NO %
[2016-09-14 04:21] LABS: PLATELET ESTIMATE ADQ (ADEQUATE)
[2016-09-14 04:23] LABS: ANISOCYTOSIS 1+ (5-10/OIF) (0-5/OIF); POLYCHROMASIA 1+ (2-5/OIF) (0-1/OIF)
[2016-09-14 04:51] LABS: AMPHETAMINES (NOT ORD) NEG (NEG); BARBITURATES (NOT ORDERED NEG (NEG); BENZODIAZEPINES (NOT ORD) POS (NEG); CANNABINOIDS (THC) POS (NEG); COCAINE (NOT ORDERED) NEG (NEG); OPIATES POS (NEG); PHENCYCLIDINE(PCP) NEG (NEG)
[2016-09-14 04:52] LABS: TRICYCLICS NEG (NEG)
[2016-09-14 05:30] LABS: BASOPHILS 0.3 %; BASOPHILS ABSOLUTE 0.01 10/3/uL (0.0-0.16); EOSINOPHILS ABSOLUTE 0.07 10/3/uL (0.0-0.53); HEMOGLOBIN 7.9 g/dL (13.6-17.8); IMMATURE GRANULOCYTES 0.3 %; IMMATURE GRANULOCYTES ABSOLUTE 0.01 10/3/uL (0.0-0.11); LYMPHOCYTES 12.5 %; LYMPHOCYTES ABSOLUTE 0.44 10/3/uL (0.67-4.30); MEAN CORPUS HGB CONC 28.9 g/dL (32.0-36.0); MEAN CORPUSCULAR HEMOGLOB 20.8 pg (26.0-34.0); MEAN CORPUSCULAR VOLUME 71.8 fL (80-100); MEAN PLATELET VOLUME 8.5 fL (9.2-13.0); MONOCYTES 9.9 %; MONOCYTES ABSOLUTE 0.35 10/3/uL (0.21-1.20); NEUTROPHILS ABSOLUTE 2.65 10/3/uL (2.02-8.40); PLATELET COUNT 194 10/3/uL (150-400); RBC DISTRIBUTION WIDTH 20.7 % (12.0-16.0); WHITE BLOOD CELLS 3.5 10/3/uL (4.5-10.5)
[2016-09-14 05:32] LABS: HEMATOCRIT 27.3 % (40.0-51.0)
[2016-09-14 05:33] LABS: MANUAL DIFF NO %
[2016-09-14 05:57] LABS: CALCIUM, SERUM 7.9 MG/DL (8.5-10.4); CHLORIDE, SERUM 105 MMOL/L (96-112); CREATININE 0.46 MG/DL (0.70-1.30); GFR AFRICAN AMERICAN 161 ML/MIN (>=60); GFR NON AFRICAN AMERICAN 139 ML/MIN (>=60); GLUCOSE, SERUM 101 MG/DL (60-99); PHOSPHORUS, SERUM 2.5 MG/DL (2.5-4.5); POTASSIUM, SERUM 4.1 MMOL/L (3.5-5.3); SODIUM, SERUM 138 MMOL/L (135-148)
[2016-09-14 06:00] LABS: BUN (BLOOD UREA NITROGEN) 13 MG/DL (6-23); CO2 (CARBON DIOXIDE) 24 MMOL/L (24-34)
[2016-09-14 07:44] LABS: GIANT PLATELET RARE; HYPOCHROMIA 1+ (3-10/OIF) (0-2/OIF); MICROCYTES 1+ (5-10/OIF) (0-5/OIF); PLATELET ESTIMATE ADQ (ADEQUATE)
[2016-09-14 08:38] LABS: CPK 30 U/L (0-200); TROPONIN I <0.02 NG/ML (<0.05)
[2016-09-14 08:39] LABS: CK-MB 0.8 NG/ML
[2016-09-14 10:24] LABS: WBC (NOT ORDERED) (RFLEX) 0 (0-5)
[2016-09-14 10:58] LABS: ASCORBIC ACID (UR NOT ORDER) NEG (NEG); BILIRUBIN, URINE NEGATIVE (NEG); KETONE, URINE NEGATIVE (NEG); LEUKOCYTE ESTERASE(NOT OR NEG (NEG)
[2016-09-14 12:58] LABS: HEMATOCRIT 27.9 % (40.0-51.0); HEMOGLOBIN 8.4 g/dL (13.6-17.8)
[2016-09-14 17:18] LABS: HEMATOCRIT 28.1 % (40.0-51.0); HEMOGLOBIN 8.2 g/dL (13.6-17.8)
[2016-09-14 17:42] LABS: CPK 28 U/L (0-200); TROPONIN I <0.02 NG/ML (<0.05)
[2016-09-14 17:44] LABS: CK-MB 0.8 NG/ML
[2016-09-15 00:13] LABS: HEMATOCRIT 25.4 % (40.0-51.0); HEMOGLOBIN 7.6 g/dL (13.6-17.8)
[2016-09-15 02:00] LABS: CK-MB 0.7 NG/ML; CPK 27 U/L (0-200); TROPONIN I <0.02 NG/ML (<0.05)
[2016-09-15 07:05] LABS: BASOPHILS 0.9 %; BASOPHILS ABSOLUTE 0.02 10/3/uL (0.0-0.16); EOSINOPHILS 2.2 %; EOSINOPHILS ABSOLUTE 0.05 10/3/uL (0.0-0.53); HEMATOCRIT 24.6 % (40.0-51.0); HEMOGLOBIN 7.5 g/dL (13.6-17.8); LYMPHOCYTES 23.4 %; LYMPHOCYTES ABSOLUTE 0.54 10/3/uL (0.67-4.30); MEAN CORPUSCULAR HEMOGLOB 22.8 pg (26.0-34.0); MEAN PLATELET VOLUME 8.3 fL (9.2-13.0); MONOCYTES 7.8 %; MONOCYTES ABSOLUTE 0.18 10/3/uL (0.21-1.20); NEUTROPHILS 65.7 %; NEUTROPHILS ABSOLUTE 1.52 10/3/uL (2.02-8.40); PLATELET COUNT 172 10/3/uL (150-400); RBC DISTRIBUTION WIDTH 21.6 % (12.0-16.0); RED CELL COUNT 3.29 10/6/uL (4.7-6.1)
[2016-09-15 07:06] LABS: WHITE BLOOD CELLS 2.3 10/3/uL (4.5-10.5)
[2016-09-15 07:07] LABS: MEAN CORPUS HGB CONC 30.5 g/dL (32.0-36.0); MEAN CORPUSCULAR VOLUME 74.8 fL (80-100)
[2016-09-15 07:08] LABS: MANUAL DIFF NO %
[2016-09-15 07:17] LABS: BUN (BLOOD UREA NITROGEN) 8 MG/DL (6-23); CALCIUM, SERUM 7.8 MG/DL (8.5-10.4); CHLORIDE, SERUM 106 MMOL/L (96-112); CO2 (CARBON DIOXIDE) 27 MMOL/L (24-34); CREATININE 0.45 MG/DL (0.70-1.30); GFR AFRICAN AMERICAN 163 ML/MIN (>=60); GFR NON AFRICAN AMERICAN 141 ML/MIN (>=60); GLUCOSE, SERUM 105 MG/DL (60-99); PHOSPHORUS, SERUM 2.3 MG/DL (2.5-4.5); POTASSIUM, SERUM 3.6 MMOL/L (3.5-5.3); SODIUM, SERUM 142 MMOL/L (135-148)
[2016-09-15 07:23] LABS: CK-MB 0.5 NG/ML; CPK 24 U/L (0-200); TROPONIN I <0.02 NG/ML (<0.05)
[2016-09-15 08:57] LABS: ANISOCYTOSIS 1+ (5-10/OIF) (0-5/OIF); HYPOCHROMIA 1+ (3-10/OIF) (0-2/OIF); MICROCYTES 1+ (5-10/OIF) (0-5/OIF); PLATELET ESTIMATE ADQ (ADEQUATE)
[2016-09-15 11:54] LABS: HEMOGLOBIN 8.9 g/dL (13.6-17.8)
[2016-09-15 11:56] LABS: HEMATOCRIT 28.9 % (40.0-51.0)
[2016-09-15 15:36] LABS: HEMATOCRIT 27.6 % (40.0-51.0); HEMOGLOBIN 8.5 g/dL (13.6-17.8)
[2016-09-15 19:55] LABS: HEMOGLOBIN 8.4 g/dL (13.6-17.8)
[2016-09-15 23:54] LABS: HEMATOCRIT 28.2 % (40.0-51.0); HEMOGLOBIN 8.7 g/dL (13.6-17.8)
[2016-09-16 04:59] LABS: BASOPHILS 0.4 %; BASOPHILS ABSOLUTE 0.01 10/3/uL (0.0-0.16); EOSINOPHILS 3.1 %; EOSINOPHILS ABSOLUTE 0.07 10/3/uL (0.0-0.53); HEMATOCRIT 27.4 % (40.0-51.0); HEMOGLOBIN 8.5 g/dL (13.6-17.8); IMMATURE GRANULOCYTES 0.4 %; IMMATURE GRANULOCYTES ABSOLUTE 0.01 10/3/uL (0.0-0.11); LYMPHOCYTES 35.7 %; LYMPHOCYTES ABSOLUTE 0.81 10/3/uL (0.67-4.30); MEAN CORPUSCULAR HEMOGLOB 23.4 pg (26.0-34.0); MEAN CORPUSCULAR VOLUME 75.3 fL (80-100); MEAN PLATELET VOLUME 8.5 fL (9.2-13.0); MONOCYTES 6.6 %; MONOCYTES ABSOLUTE 0.15 10/3/uL (0.21-1.20); NEUTROPHILS 53.8 %; NEUTROPHILS ABSOLUTE 1.22 10/3/uL (2.02-8.40); PLATELET COUNT 169 10/3/uL (150-400); RBC DISTRIBUTION WIDTH 20.9 % (12.0-16.0); RED CELL COUNT 3.64 10/6/uL (4.7-6.1)
[2016-09-16 05:00] LABS: MANUAL DIFF NO %; WHITE BLOOD CELLS 2.3 10/3/uL (4.5-10.5)
[2016-09-16 05:14] LABS: BUN (BLOOD UREA NITROGEN) 5 MG/DL (6-23); CHLORIDE, SERUM 108 MMOL/L (96-112); CO2 (CARBON DIOXIDE) 28 MMOL/L (24-34); CREATININE 0.52 MG/DL (0.70-1.30); GFR AFRICAN AMERICAN 154 ML/MIN (>=60); GFR NON AFRICAN AMERICAN 132 ML/MIN (>=60); GLUCOSE, SERUM 108 MG/DL (60-99); PHOSPHORUS, SERUM 2.4 MG/DL (2.5-4.5); POTASSIUM, SERUM 3.5 MMOL/L (3.5-5.3); SODIUM, SERUM 144 MMOL/L (135-148)
[2016-09-16 09:16] LABS: HEMATOCRIT 26.4 % (40.0-51.0)
[2016-09-16 13:48] LABS: HEMATOCRIT 26.9 % (40.0-51.0); HEMOGLOBIN 8.3 g/dL (13.6-17.8)
[2016-09-16 16:09] LABS: HEMATOCRIT 25.9 % (40.0-51.0); HEMOGLOBIN 7.9 g/dL (13.6-17.8)
[2016-09-16 21:42] LABS: HEMATOCRIT 26.5 % (40.0-51.0); HEMOGLOBIN 8.1 g/dL (13.6-17.8)
[2016-09-17 02:02] LABS: BASOPHILS ABSOLUTE 0.02 10/3/uL (0.0-0.16); EOSINOPHILS 3.4 %; EOSINOPHILS ABSOLUTE 0.07 10/3/uL (0.0-0.53); HEMATOCRIT 26.8 % (40.0-51.0); HEMOGLOBIN 8.1 g/dL (13.6-17.8); LYMPHOCYTES 35.1 %; LYMPHOCYTES ABSOLUTE 0.73 10/3/uL (0.67-4.30); MEAN CORPUS HGB CONC 30.2 g/dL (32.0-36.0); MEAN CORPUSCULAR HEMOGLOB 23.3 pg (26.0-34.0); MEAN PLATELET VOLUME 8.1 fL (9.2-13.0); MONOCYTES 6.3 %; MONOCYTES ABSOLUTE 0.13 10/3/uL (0.21-1.20); NEUTROPHILS 54.2 %; NEUTROPHILS ABSOLUTE 1.13 10/3/uL (2.02-8.40); PLATELET COUNT 158 10/3/uL (150-400); RBC DISTRIBUTION WIDTH 21.7 % (12.0-16.0); RED CELL COUNT 3.48 10/6/uL (4.7-6.1)
[2016-09-17 02:10] LABS: WHITE BLOOD CELLS 2.1 10/3/uL (4.5-10.5)
[2016-09-17 02:11] LABS: MANUAL DIFF NO %
[2016-09-17 02:13] LABS: BUN (BLOOD UREA NITROGEN) 6 MG/DL (6-23); CALCIUM, SERUM 7.8 MG/DL (8.5-10.4); CHLORIDE, SERUM 106 MMOL/L (96-112); CO2 (CARBON DIOXIDE) 32 MMOL/L (24-34); CREATININE 0.54 MG/DL (0.70-1.30); GFR AFRICAN AMERICAN 151 ML/MIN (>=60); GFR NON AFRICAN AMERICAN 130 ML/MIN (>=60); GLUCOSE, SERUM 96 MG/DL (60-99); POTASSIUM, SERUM 3.8 MMOL/L (3.5-5.3); SODIUM, SERUM 145 MMOL/L (135-148)
[2016-09-17 02:14] LABS: PHOSPHORUS, SERUM 3.2 MG/DL (2.5-4.5)
[2016-09-17 08:23] LABS: HEMATOCRIT 25.4 % (40.0-51.0); HEMOGLOBIN 7.9 g/dL (13.6-17.8)
[2016-09-17 08:31] LABS: INTERNATIONAL NORMAL RATI 1.4 UNITS (-); PROTIME (NOT ORD) 16.6 SEC (12.0-14.5)
[2016-09-17 10:21] LABS: HEPATITIS B SURFACE ANTIGEN NON-REACTIVE (NON-REACT)
[2016-09-17 10:37] LABS: HEPATITIS B CORE AB IGM NON-REACTIVE (NON-REAC); HEPATITIS C ANTIBODY NON-REACTIVE (NON-REACT)
[2016-09-17 10:38] LABS: HIV COMBO NON-REACTIVE (NON REAC)
[2016-09-17 10:39] LABS: HEP A ANTIBODY IGM NON-REACTIVE (NON-REACT)
[2016-09-17 15:14] LABS: HEMATOCRIT 32.8 % (40.0-51.0); HEMOGLOBIN 10.1 g/dL (13.6-17.8)
[2016-09-17 20:50] LABS: HEMATOCRIT 30.1 % (40.0-51.0); HEMOGLOBIN 9.3 g/dL (13.6-17.8)
[2016-09-18 05:32] LABS: BASOPHILS 0.5 %; BASOPHILS ABSOLUTE 0.01 10/3/uL (0.0-0.16); EOSINOPHILS 4.8 %; HEMATOCRIT 30.2 % (40.0-51.0); HEMOGLOBIN 9.4 g/dL (13.6-17.8); IMMATURE GRANULOCYTES 0.5 %; IMMATURE GRANULOCYTES ABSOLUTE 0.01 10/3/uL (0.0-0.11); LYMPHOCYTES 28.2 %; LYMPHOCYTES ABSOLUTE 0.59 10/3/uL (0.67-4.30); MEAN CORPUS HGB CONC 31.1 g/dL (32.0-36.0); MEAN CORPUSCULAR HEMOGLOB 24.1 pg (26.0-34.0); MEAN CORPUSCULAR VOLUME 77.4 fL (80-100); MEAN PLATELET VOLUME 8.5 fL (9.2-13.0); MONOCYTES 9.1 %; MONOCYTES ABSOLUTE 0.19 10/3/uL (0.21-1.20); NEUTROPHILS 56.9 %; NEUTROPHILS ABSOLUTE 1.19 10/3/uL (2.02-8.40); PLATELET COUNT 151 10/3/uL (150-400)
[2016-09-18 05:33] LABS: MANUAL DIFF NO %; WHITE BLOOD CELLS 2.1 10/3/uL (4.5-10.5)
[2016-09-18 05:49] LABS: ALBUMIN 2.5 G/DL (3.5-5.0); BUN (BLOOD UREA NITROGEN) 6 MG/DL (6-23); CALCIUM, SERUM 8.1 MG/DL (8.5-10.4); CHLORIDE, SERUM 105 MMOL/L (96-112); CO2 (CARBON DIOXIDE) 32 MMOL/L (24-34); CREATININE 0.55 MG/DL (0.70-1.30); GFR AFRICAN AMERICAN 150 ML/MIN (>=60); GFR NON AFRICAN AMERICAN 129 ML/MIN (>=60); GLUCOSE, SERUM 91 MG/DL (60-99); PHOSPHORUS, SERUM 3.2 MG/DL (2.5-4.5); POTASSIUM, SERUM 3.8 MMOL/L (3.5-5.3); SODIUM, SERUM 143 MMOL/L (135-148)
[2016-09-19 05:39] LABS: BASOPHILS 0.4 %; BASOPHILS ABSOLUTE 0.01 10/3/uL (0.0-0.16); EOSINOPHILS 5.9 %; EOSINOPHILS ABSOLUTE 0.15 10/3/uL (0.0-0.53); HEMOGLOBIN 10.4 g/dL (13.6-17.8); IMMATURE GRANULOCYTES 0.4 %; IMMATURE GRANULOCYTES ABSOLUTE 0.01 10/3/uL (0.0-0.11); LYMPHOCYTES 26.7 %; LYMPHOCYTES ABSOLUTE 0.68 10/3/uL (0.67-4.30); MEAN CORPUSCULAR HEMOGLOB 23.7 pg (26.0-34.0); MEAN CORPUSCULAR VOLUME 76.7 fL (80-100); MEAN PLATELET VOLUME 8.3 fL (9.2-13.0); MONOCYTES 8.2 %; MONOCYTES ABSOLUTE 0.21 10/3/uL (0.21-1.20); NEUTROPHILS 58.4 %; NEUTROPHILS ABSOLUTE 1.49 10/3/uL (2.02-8.40); PLATELET COUNT 146 10/3/uL (150-400); RBC DISTRIBUTION WIDTH 22.7 % (12.0-16.0); RED CELL COUNT 4.38 10/6/uL (4.7-6.1); WHITE BLOOD CELLS 2.6 10/3/uL (4.5-10.5)
[2016-09-19 05:47] LABS: HEMATOCRIT 33.6 % (40.0-51.0); MANUAL DIFF NO %
[2016-09-19 05:55] LABS: A/G RATIO 0.7 (0.7-1.9); ALBUMIN 2.7 G/DL (3.5-5.0); ALKALINE PHOSPHATASE 123 U/L (45-117); BUN (BLOOD UREA NITROGEN) 7 MG/DL (6-23); CALCIUM, SERUM 8.2 MG/DL (8.5-10.4); CHLORIDE, SERUM 102 MMOL/L (96-112); CO2 (CARBON DIOXIDE) 29 MMOL/L (24-34); CREATININE 0.62 MG/DL (0.70-1.30); GFR AFRICAN AMERICAN 143 ML/MIN (>=60); GFR NON AFRICAN AMERICAN 123 ML/MIN (>=60); POTASSIUM, SERUM 3.9 MMOL/L (3.5-5.3); SGOT(AST) 10 U/L (5-40); SGPT(ALT) 20 U/L (5-65); SODIUM, SERUM 140 MMOL/L (135-148); TOTAL PROTEIN 6.7 G/DL (6.0-8.5)
[2016-09-19 05:56] LABS: GLUCOSE, SERUM 120 MG/DL (60-99)
[2016-09-19 06:07] LABS: PLATELET ESTIMATE ADQ (ADEQUATE); RBC MORPHOLOGY ABN (NORMAL)
[2016-09-19 14:17] LABS: SMEAR FOR ABNORMAL CELLS SEE PATHOLOGY REPORT
[2016-09-19 14:43] LABS: FOLATE 16.5 NG/ML (>5.2)
[2016-09-20 05:57] LABS: BASOPHILS 0.7 %; BASOPHILS ABSOLUTE 0.02 10/3/uL (0.0-0.16); EOSINOPHILS 5.7 %; EOSINOPHILS ABSOLUTE 0.17 10/3/uL (0.0-0.53); HEMATOCRIT 33.1 % (40.0-51.0); HEMOGLOBIN 9.9 g/dL (13.6-17.8); LYMPHOCYTES 24.7 %; LYMPHOCYTES ABSOLUTE 0.73 10/3/uL (0.67-4.30); MEAN CORPUS HGB CONC 29.9 g/dL (32.0-36.0); MEAN CORPUSCULAR HEMOGLOB 23.6 pg (26.0-34.0); MEAN PLATELET VOLUME 8.9 fL (9.2-13.0); MONOCYTES 8.1 %; MONOCYTES ABSOLUTE 0.24 10/3/uL (0.21-1.20); NEUTROPHILS 60.8 %; PLATELET COUNT 164 10/3/uL (150-400); RED CELL COUNT 4.19 10/6/uL (4.7-6.1)
[2016-09-20 06:04] LABS: MANUAL DIFF NO %
[2016-09-20 06:23] LABS: ELLIPTOCYTES 1+ (3-10/OIF) (0-2/OIF); PLATELET ESTIMATE ADQ (ADEQUATE)
[2016-09-20 06:29] LABS: A/G RATIO 0.9 (0.7-1.9); ALBUMIN 2.9 G/DL (3.5-5.0); ALKALINE PHOSPHATASE 119 U/L (45-117); BUN (BLOOD UREA NITROGEN) 9 MG/DL (6-23); CALCIUM, SERUM 8.6 MG/DL (8.5-10.4); CHLORIDE, SERUM 102 MMOL/L (96-112); CO2 (CARBON DIOXIDE) 30 MMOL/L (24-34); CREATININE 0.62 MG/DL (0.70-1.30); GFR AFRICAN AMERICAN 143 ML/MIN (>=60); GFR NON AFRICAN AMERICAN 123 ML/MIN (>=60); GLOBULIN 3.2 G/DL (2.5-4.1); GLUCOSE, SERUM 121 MG/DL (60-99); POTASSIUM, SERUM 4.2 MMOL/L (3.5-5.3); SGOT(AST) 10 U/L (5-40); SGPT(ALT) 15 U/L (5-65); SODIUM, SERUM 140 MMOL/L (135-148); TOTAL BILIRUBIN 0.6 MG/DL (0-1.2); TOTAL PROTEIN 6.1 G/DL (6.0-8.5)
[2016-09-21 06:00] LABS: BASOPHILS 0.7 %; BASOPHILS ABSOLUTE 0.02 10/3/uL (0.0-0.16); EOSINOPHILS 6.3 %; EOSINOPHILS ABSOLUTE 0.19 10/3/uL (0.0-0.53); HEMATOCRIT 34.4 % (40.0-51.0); HEMOGLOBIN 10.5 g/dL (13.6-17.8); LYMPHOCYTES 32.6 %; LYMPHOCYTES ABSOLUTE 0.99 10/3/uL (0.67-4.30); MEAN CORPUS HGB CONC 30.5 g/dL (32.0-36.0); MEAN CORPUSCULAR HEMOGLOB 24.1 pg (26.0-34.0); MEAN CORPUSCULAR VOLUME 79.1 fL (80-100); MEAN PLATELET VOLUME 8.5 fL (9.2-13.0); MONOCYTES 8.9 %; MONOCYTES ABSOLUTE 0.27 10/3/uL (0.21-1.20); NEUTROPHILS 51.5 %; NEUTROPHILS ABSOLUTE 1.57 10/3/uL (2.02-8.40); PLATELET COUNT 147 10/3/uL (150-400); RBC DISTRIBUTION WIDTH 22.5 % (12.0-16.0); RED CELL COUNT 4.35 10/6/uL (4.7-6.1); RETICULOCYTE COUNT 1.2 % (0.5-2.5); RETICULOCYTE COUNT ABSOLUTE 50.5 10/3/uL (20.2-119.8)
[2016-09-21 06:06] LABS: MANUAL DIFF NO %
[2016-09-21 06:07] LABS: INTERNATIONAL NORMAL RATI 1.2 UNITS (-); PROTIME (NOT ORD) 14.8 SEC (12.0-14.5)
[2016-09-21 06:27] LABS: ALBUMIN 2.8 G/DL (3.5-5.0); ALKALINE PHOSPHATASE 121 U/L (45-117); BUN (BLOOD UREA NITROGEN) 11 MG/DL (6-23); CALCIUM, SERUM 8.8 MG/DL (8.5-10.4); CHLORIDE, SERUM 103 MMOL/L (96-112); CO2 (CARBON DIOXIDE) 28 MMOL/L (24-34); CREATININE 0.56 MG/DL (0.70-1.30); DIRECT BILIRUBIN 0.2 MG/DL (0.0-0.4); GFR AFRICAN AMERICAN 149 ML/MIN (>=60); GFR NON AFRICAN AMERICAN 128 ML/MIN (>=60); POTASSIUM, SERUM 4.4 MMOL/L (3.5-5.3); SGOT(AST) 10 U/L (5-40); SGPT(ALT) 19 U/L (5-65); SODIUM, SERUM 139 MMOL/L (135-148); TOTAL PROTEIN 6.8 G/DL (6.0-8.5)
[2016-09-21 06:28] LABS: A/G RATIO 0.7 (0.7-1.9); GLUCOSE, SERUM 76 MG/DL (60-99); TOTAL BILIRUBIN 1.2 MG/DL (0-1.2)
[2016-09-21 06:49] LABS: PLATELET ESTIMATE SLT DEC (ADEQUATE)
[2016-09-21 06:50] LABS: POLYCHROMASIA 1+ (2-5/OIF) (0-1/OIF)
[2016-09-21 14:32] LABS: HEMATOCRIT 31.2 % (40.0-51.0); HEMOGLOBIN 9.8 g/dL (13.6-17.8)
[2016-09-21 15:42] LABS: BE (BASE EXCESS) -2.1 MEQ/L (0 +/- 2.5); CARBOXYHEMOGLOBIN 0.8 % (0-3); HCO3 (ACTUAL BICARBONATE) 21.7 MEQ/L (23-27); HEMOBLOGIN CONTENT 12.7 G/DL (14-18); INSTRUMENT SERIAL # 11843; METHEMOGLOBIN 0.6 % (0-3); O2 CONTENT 17.9 VOL% (18-24); OPERATOR ID 35188; PCO2 (CO2 TENSION) 34 MMHG (35-45); PO2 (O2 TENSION) 217 MMHG (79-93); SAMPLE Arterial; pH 7.42 (7.37-7.43)
[2016-09-21 22:50] LABS: HEMATOCRIT 37.3 % (40.0-51.0); HEMOGLOBIN 11.8 g/dL (13.6-17.8)
[2016-09-21 22:59] LABS: INTERNATIONAL NORMAL RATI 1.2 UNITS (-); PROTIME (NOT ORD) 14.9 SEC (12.0-14.5)
[2016-09-22 04:53] LABS: BASOPHILS 0 %; EOSINOPHILS 0.1 %; EOSINOPHILS ABSOLUTE 0.01 10/3/uL (0.0-0.53); HEMATOCRIT 34.6 % (40.0-51.0); HEMOGLOBIN 11.1 g/dL (13.6-17.8); IMMATURE GRANULOCYTES 0.2 %; IMMATURE GRANULOCYTES ABSOLUTE 0.02 10/3/uL (0.0-0.11); LYMPHOCYTES 7.8 %; LYMPHOCYTES ABSOLUTE 0.89 10/3/uL (0.67-4.30); MEAN CORPUSCULAR HEMOGLOB 24.8 pg (26.0-34.0); MEAN CORPUSCULAR VOLUME 77.4 fL (80-100); MEAN PLATELET VOLUME 10.2 fL (9.2-13.0); NEUTROPHILS 84.9 %; NEUTROPHILS ABSOLUTE 9.65 10/3/uL (2.02-8.40); PLATELET COUNT 178 10/3/uL (150-400); RBC DISTRIBUTION WIDTH 20.5 % (12.0-16.0); RED CELL COUNT 4.47 10/6/uL (4.7-6.1)
[2016-09-22 04:57] LABS: MANUAL DIFF NO %; MEAN CORPUS HGB CONC 32.1 g/dL (32.0-36.0); WHITE BLOOD CELLS 11.4 10/3/uL (4.5-10.5)
[2016-09-22 05:02] LABS: PARTIAL THROMBO TIME 29.3 SEC (22.5-37.2)
[2016-09-22 05:06] LABS: ALBUMIN 2.6 G/DL (3.5-5.0); BUN (BLOOD UREA NITROGEN) 10 MG/DL (6-23); CHLORIDE, SERUM 103 MMOL/L (96-112); CO2 (CARBON DIOXIDE) 25 MMOL/L (24-34); CREATININE 0.49 MG/DL (0.70-1.30); GFR AFRICAN AMERICAN 157 ML/MIN (>=60); GFR NON AFRICAN AMERICAN 136 ML/MIN (>=60); PHOSPHORUS, SERUM 3.3 MG/DL (2.5-4.5); POTASSIUM, SERUM 4.5 MMOL/L (3.5-5.3); SGOT(AST) 15 U/L (5-40); SGPT(ALT) 20 U/L (5-65); SODIUM, SERUM 139 MMOL/L (135-148); TOTAL BILIRUBIN 1.1 MG/DL (0-1.2); TOTAL PROTEIN 5.6 G/DL (6.0-8.5)
[2016-09-22 05:07] LABS: A/G RATIO 0.9 (0.7-1.9); ALKALINE PHOSPHATASE 97 U/L (45-117); GLUCOSE, SERUM 136 MG/DL (60-99)
[2016-09-22 06:54] LABS: INTERNATIONAL NORMAL RATI 1.2 UNITS (-); PROTIME (NOT ORD) 14.7 SEC (12.0-14.5)
[2016-09-22 11:44] LABS: HEMATOCRIT 32.1 % (40.0-51.0); HEMOGLOBIN 10.3 g/dL (13.6-17.8)
[2016-09-22 17:22] LABS: HEMATOCRIT 31.2 % (40.0-51.0)
[2016-09-22 22:20] LABS: HEMATOCRIT 30.4 % (40.0-51.0); HEMOGLOBIN 9.6 g/dL (13.6-17.8)
[2016-09-23 04:06] LABS: BASOPHILS 0.2 %; BASOPHILS ABSOLUTE 0.03 10/3/uL (0.0-0.16); EOSINOPHILS 5.7 %; EOSINOPHILS ABSOLUTE 0.72 10/3/uL (0.0-0.53); HEMATOCRIT 29.4 % (40.0-51.0); HEMOGLOBIN 9.2 g/dL (13.6-17.8); IMMATURE GRANULOCYTES 0.2 %; IMMATURE GRANULOCYTES ABSOLUTE 0.03 10/3/uL (0.0-0.11); LYMPHOCYTES 7.1 %; LYMPHOCYTES ABSOLUTE 0.91 10/3/uL (0.67-4.30); MEAN CORPUS HGB CONC 31.3 g/dL (32.0-36.0); MEAN CORPUSCULAR HEMOGLOB 24.5 pg (26.0-34.0); MEAN CORPUSCULAR VOLUME 78.4 fL (80-100); MEAN PLATELET VOLUME 8.8 fL (9.2-13.0); MONOCYTES 11.2 %; MONOCYTES ABSOLUTE 1.43 10/3/uL (0.21-1.20); NEUTROPHILS 75.6 %; NEUTROPHILS ABSOLUTE 9.61 10/3/uL (2.02-8.40); RBC DISTRIBUTION WIDTH 20.8 % (12.0-16.0); RED CELL COUNT 3.75 10/6/uL (4.7-6.1); WHITE BLOOD CELLS 12.7 10/3/uL (4.5-10.5)
[2016-09-23 04:08] LABS: MANUAL DIFF NO %; PLATELET COUNT 248 10/3/uL (150-400)
[2016-09-23 04:18] LABS: CHLORIDE, SERUM 103 MMOL/L (96-112); CO2 (CARBON DIOXIDE) 28 MMOL/L (24-34); CREATININE 0.46 MG/DL (0.70-1.30); GFR AFRICAN AMERICAN 161 ML/MIN (>=60); GFR NON AFRICAN AMERICAN 139 ML/MIN (>=60); GLUCOSE, SERUM 122 MG/DL (60-99); PHOSPHORUS, SERUM 2.5 MG/DL (2.5-4.5); POTASSIUM, SERUM 4.2 MMOL/L (3.5-5.3); SODIUM, SERUM 141 MMOL/L (135-148)
[2016-09-23 04:19] LABS: BUN (BLOOD UREA NITROGEN) 6 MG/DL (6-23)
[2016-09-24 04:47] LABS: BASOPHILS 0.6 %; BASOPHILS ABSOLUTE 0.05 10/3/uL (0.0-0.16); EOSINOPHILS 13.6 %; HEMATOCRIT 30.1 % (40.0-51.0); HEMOGLOBIN 9.1 g/dL (13.6-17.8); IMMATURE GRANULOCYTES 0.1 %; IMMATURE GRANULOCYTES ABSOLUTE 0.01 10/3/uL (0.0-0.11); LYMPHOCYTES 13.3 %; LYMPHOCYTES ABSOLUTE 1.17 10/3/uL (0.67-4.30); MEAN CORPUS HGB CONC 30.2 g/dL (32.0-36.0); MEAN CORPUSCULAR HEMOGLOB 24.4 pg (26.0-34.0); MEAN CORPUSCULAR VOLUME 80.7 fL (80-100); MEAN PLATELET VOLUME 8.8 fL (9.2-13.0); MONOCYTES 12.3 %; MONOCYTES ABSOLUTE 1.08 10/3/uL (0.21-1.20); NEUTROPHILS 60.1 %; NEUTROPHILS ABSOLUTE 5.29 10/3/uL (2.02-8.40); RBC DISTRIBUTION WIDTH 20.7 % (12.0-16.0); RED CELL COUNT 3.73 10/6/uL (4.7-6.1); WHITE BLOOD CELLS 8.8 10/3/uL (4.5-10.5)
[2016-09-24 04:48] LABS: MANUAL DIFF NO %; PLATELET COUNT 352 10/3/uL (150-400)
[2016-09-24 05:04] LABS: BUN (BLOOD UREA NITROGEN) 5 MG/DL (6-23); CALCIUM, SERUM 8.2 MG/DL (8.5-10.4); CHLORIDE, SERUM 99 MMOL/L (96-112); CO2 (CARBON DIOXIDE) 31 MMOL/L (24-34); CREATININE 0.48 MG/DL (0.70-1.30); GFR AFRICAN AMERICAN 159 ML/MIN (>=60); GFR NON AFRICAN AMERICAN 137 ML/MIN (>=60); GLUCOSE, SERUM 119 MG/DL (60-99); PHOSPHORUS, SERUM 2.6 MG/DL (2.5-4.5); POTASSIUM, SERUM 3.8 MMOL/L (3.5-5.3); SODIUM, SERUM 140 MMOL/L (135-148)
[2016-09-25 04:54] LABS: BASOPHILS 0.7 %; BASOPHILS ABSOLUTE 0.05 10/3/uL (0.0-0.16); EOSINOPHILS 17.8 %; EOSINOPHILS ABSOLUTE 1.23 10/3/uL (0.0-0.53); HEMATOCRIT 28.4 % (40.0-51.0); HEMOGLOBIN 8.8 g/dL (13.6-17.8); IMMATURE GRANULOCYTES 0.3 %; IMMATURE GRANULOCYTES ABSOLUTE 0.02 10/3/uL (0.0-0.11); LYMPHOCYTES 12.9 %; LYMPHOCYTES ABSOLUTE 0.89 10/3/uL (0.67-4.30); MEAN CORPUSCULAR HEMOGLOB 24.7 pg (26.0-34.0); MEAN CORPUSCULAR VOLUME 79.8 fL (80-100); MEAN PLATELET VOLUME 8.6 fL (9.2-13.0); MONOCYTES 10.7 %; MONOCYTES ABSOLUTE 0.74 10/3/uL (0.21-1.20); NEUTROPHILS 57.6 %; NEUTROPHILS ABSOLUTE 3.99 10/3/uL (2.02-8.40); NUCLEATED RED BLOOD CELLS 0.5 /100WBC (0-0); RBC DISTRIBUTION WIDTH 20.4 % (12.0-16.0); RED CELL COUNT 3.56 10/6/uL (4.7-6.1); WHITE BLOOD CELLS 6.9 10/3/uL (4.5-10.5)
[2016-09-25 04:56] LABS: BUN (BLOOD UREA NITROGEN) 6 MG/DL (6-23); CALCIUM, SERUM 8.2 MG/DL (8.5-10.4); CHLORIDE, SERUM 102 MMOL/L (96-112); CO2 (CARBON DIOXIDE) 33 MMOL/L (24-34); CREATININE 0.46 MG/DL (0.70-1.30); GFR AFRICAN AMERICAN 161 ML/MIN (>=60); GFR NON AFRICAN AMERICAN 139 ML/MIN (>=60); GLUCOSE, SERUM 133 MG/DL (60-99); MANUAL DIFF NO %; PLATELET COUNT 464 10/3/uL (150-400); POTASSIUM, SERUM 4.2 MMOL/L (3.5-5.3); SODIUM, SERUM 140 MMOL/L (135-148)
[2016-09-26 05:44] LABS: BASOPHILS 0.6 %; BASOPHILS ABSOLUTE 0.05 10/3/uL (0.0-0.16); EOSINOPHILS 17.8 %; EOSINOPHILS ABSOLUTE 1.58 10/3/uL (0.0-0.53); HEMATOCRIT 27.5 % (40.0-51.0); HEMOGLOBIN 8.4 g/dL (13.6-17.8); IMMATURE GRANULOCYTES 0.1 %; IMMATURE GRANULOCYTES ABSOLUTE 0.01 10/3/uL (0.0-0.11); LYMPHOCYTES 12.7 %; LYMPHOCYTES ABSOLUTE 1.13 10/3/uL (0.67-4.30); MEAN CORPUS HGB CONC 30.5 g/dL (32.0-36.0); MEAN CORPUSCULAR HEMOGLOB 24.1 pg (26.0-34.0); MEAN PLATELET VOLUME 8.3 fL (9.2-13.0); MONOCYTES 11.9 %; MONOCYTES ABSOLUTE 1.06 10/3/uL (0.21-1.20); NEUTROPHILS 56.9 %; NEUTROPHILS ABSOLUTE 5.05 10/3/uL (2.02-8.40); NUCLEATED RED BLOOD CELLS 1.2 /100WBC (0-0); PLATELET COUNT 601 10/3/uL (150-400); RBC DISTRIBUTION WIDTH 20.6 % (12.0-16.0); RED CELL COUNT 3.48 10/6/uL (4.7-6.1); WHITE BLOOD CELLS 8.9 10/3/uL (4.5-10.5)
[2016-09-26 05:45] LABS: MANUAL DIFF NO %
[2016-09-27 05:44] LABS: BUN (BLOOD UREA NITROGEN) 9 MG/DL (6-23); CALCIUM, SERUM 8.4 MG/DL (8.5-10.4); CHLORIDE, SERUM 99 MMOL/L (96-112); CO2 (CARBON DIOXIDE) 29 MMOL/L (24-34); GFR AFRICAN AMERICAN 145 ML/MIN (>=60); GFR NON AFRICAN AMERICAN 125 ML/MIN (>=60); GLUCOSE, SERUM 117 MG/DL (60-99); POTASSIUM, SERUM 4.1 MMOL/L (3.5-5.3); SODIUM, SERUM 138 MMOL/L (135-148)
[2016-09-27 05:47] LABS: BASOPHILS 0.7 %; BASOPHILS ABSOLUTE 0.07 10/3/uL (0.0-0.16); EOSINOPHILS 18.6 %; HEMATOCRIT 28.2 % (40.0-51.0); HEMOGLOBIN 8.6 g/dL (13.6-17.8); IMMATURE GRANULOCYTES 0.3 %; IMMATURE GRANULOCYTES ABSOLUTE 0.03 10/3/uL (0.0-0.11); LYMPHOCYTES 14.2 %; LYMPHOCYTES ABSOLUTE 1.37 10/3/uL (0.67-4.30); MEAN CORPUS HGB CONC 30.5 g/dL (32.0-36.0); MEAN CORPUSCULAR HEMOGLOB 24.1 pg (26.0-34.0); MONOCYTES 11.3 %; MONOCYTES ABSOLUTE 1.09 10/3/uL (0.21-1.20); NEUTROPHILS 54.9 %; NEUTROPHILS ABSOLUTE 5.31 10/3/uL (2.02-8.40); NUCLEATED RED BLOOD CELLS 1.8 /100WBC (0-0); PLATELET COUNT 700 10/3/uL (150-400); RBC DISTRIBUTION WIDTH 20.8 % (12.0-16.0); RED CELL COUNT 3.57 10/6/uL (4.7-6.1); WHITE BLOOD CELLS 9.7 10/3/uL (4.5-10.5)
[2016-09-27 05:52] LABS: MANUAL DIFF NO %
[2016-09-27 11:35] LABS: AMYLASE BODY FLUID 1642 U/L
[2016-09-27 15:05] LABS: BD FL SOURCE (NOT ORD) JP DRAIN
== END 2016-09-27 13:21 | DRG 264 ==
LOC: ER 19:25 → ER/OF 09-14 01:46 → CCU 09-14 03:03 → 7NO 09-17 19:43 → SDC/OF 09-21 16:38 → MIC 09-21 17:09 → 4EA 09-25 13:26
PROVIDERS: Hospitalist; Internal Medicine; Internal Medicine Critical Care Medicine; Internal Medicine Gastroenterology; Internal Medicine Pulmonary Disease; Physician Assistant; Surgery
PROC: 0DJ08ZZ Inspection of Upper Intestinal Tract, Via Natural or Artificial Opening Endoscopic (ICD-10-PCS; 2016-09-14)
PROC: 30233N1 Transfusion of Nonautologous Red Blood Cells into Peripheral Vein, Percutaneous Approach (ICD-10-PCS; 2016-09-14)
PROC: 0DJ08ZZ Inspection of Upper Intestinal Tract, Via Natural or Artificial Opening Endoscopic (ICD-10-PCS; principal; 2016-09-17 14:58)
PROC: 07TP0ZZ Resection of Spleen, Open Approach (ICD-10-PCS; 2016-09-21)
PROC: 0W3P0ZZ Control Bleeding in Gastrointestinal Tract, Open Approach (ICD-10-PCS; 2016-09-21)
DX: I82.890 Acute embolism and thrombosis of other specified veins (principal); L89.159 Pressure ulcer of sacral region, unspecified stage; K86.3 Pseudocyst of pancreas; G82.20 Paraplegia, unspecified; D62 Acute posthemorrhagic anemia; K86.1 Other chronic pancreatitis; K92.2 Gastrointestinal hemorrhage, unspecified; N39.0 Urinary tract infection, site not specified; M86.9 Osteomyelitis, unspecified; I86.4 Gastric varices; W19.XXXS Unspecified fall, sequela; G89.4 Chronic pain syndrome; K59.03 Drug induced constipation; T40.2X5A Adverse effect of other opioids, initial encounter; F41.9 Anxiety disorder, unspecified; Z93.3 Colostomy status; Z87.440 Personal history of urinary (tract) infections
CPT/HCPCS: 36415; 36430; 71010; 74170; 74176; 80048; 80053; 80069; 80074; 80076; 80202; 80305; 81001; 82150; 82550; 82553; 82607; 82746; 82805; 83615; 83735; 83880; 84100; 84484; 85014; 85018; 85025; 85045; 85610; 85730; 86850; 86870; 86900; 86901; 86902; 86920; 86922; 87070; 87205; 87389; 87641; 88184; 88185; 88305; 90472; 90620; 90648; 90670; 90734; 93005; 93970; 93975; 94640; 96374; 99291; A9270-GY; C1781; C9113; G0008; G0009; J0330; J1170; J1200; J1644; J2185; J2250; J2370; J2405; J2550; J2710; J2795; J3010; J3370; P9016; P9045